=== PATIENT | female | born 1995 | race American Indian/Alaskan Native ===

== ENCOUNTER 2021-01-14 19:57 | Emergency (ER) | payer SELFPAY ==
[2021-01-14 22:36] VITALS: BP 110/67
[2021-01-14 23:56] LABS: Hematocrit 36.6 % (30.3-42.9); Hemoglobin 12.7 gm/dl (10.1-14.3); Mean Corpuscular HGB Conc 35 % (30-34); Mean Corpuscular Volume 92 fl (79-97); Platelet Count 116 K/mm3 (140-440); Red Blood Count 3.96 M/mm3 (3.65-5.03); Red Cell Distribution Width 12.6 % (13.2-15.2)
[2021-01-15] MEDS ORDERED: SODIUM CHLORIDE 0.9% 1000 ML 1,000 ML IV ONE (00:02)
[2021-01-15] MEDS ORDERED: ONDANSETRON 4 MG/2 ML INJ IV ONE (00:02)
[2021-01-15] MEDS ORDERED: DICYCLOMINE 20 MG/2 ML INJ IM ONE (00:04)
[2021-01-15 00:20] LABS: Albumin 4.1 g/dL (3.9-5); Blood Urea Nitrogen 7 mg/dL (7-17); Calcium 8.6 mg/dL (8.4-10.2); Hemolysis Index 5
[2021-01-15 00:47] LABS: Alanine Aminotransferase 3312 units/L (7-56); BUN/Creatinine Ratio 14
--- NOTE | 2021-01-15 00:57 | Emergency Department Report ---
ED Abdominal Pain HPI - General Chief Complaint: Nausea/Vomiting/Diarrhea Stated Complaint: WEAKNESS;DEHYDRATION;VOMITING Time Seen by Provider: 01/15/21 00:02 Source: patient Mode of arrival: Ambulatory Limitations: No Limitations - History of Present Illness Initial Comments: Patient 25-year-old -[place] female who presents for nausea vomiting diarrhea after eating leftover [employer] on yesterday. Patient denies fevers or chills, patient does endorse abdominal cramping and pain that is 14 bilateral lower abdominal, patient is voiding without difficulty. There is been no fever or chills. Last p.o. intake was yesterday. Last hydration was 2 hours ago. Patient denies dizziness or lightheadedness. Patient is alert and oriented x3 amatory with steady gait, states abdominal cramping is primary concern. MD Complaint: abdominal pain - Related Data Previous Rx's Medication Instructions Recorded Last Taken Type Dicyclomine [Bentyl] 10 mg PO QID PRN #15 capsule 01/15/21 Unknown Rx Ondansetron [Zofran Odt] 4 mg PO Q8HR #12 tab.rapdis 01/15/21 Unknown Rx Allergies Allergy/AdvReac Type Severity Reaction Status Date / Time No Known Allergies Allergy Unverified 01/14/21 22:35 ED Review of Systems ROS: Stated complaint: WEAKNESS;DEHYDRATION;VOMITING Other details as noted in HPI Constitutional: denies: chills, fever Eyes: denies: eye pain, eye discharge, vision change ENT: denies: ear pain, throat pain Respiratory: denies: cough, shortness of breath, wheezing Cardiovascular: denies: chest pain, palpitations Endocrine: no symptoms reported Gastrointestinal: abdominal pain, nausea, vomiting, diarrhea. denies: hematemesis, melena Genitourinary: denies: urgency, dysuria, discharge Musculoskeletal: denies: back pain, joint swelling, arthralgia Skin: denies: rash, lesions Neurological: denies: headache, weakness, paresthesias, vertigo Psychiatric: as per HPI Hematological/Lymphatic: denies: easy bleeding, easy bruising ED Past Medical Hx - Past Medical History Previous Medical History?: No - Surgical History Past Surgical History?: No - Medications Home Medications: Home Medications Medication Instructions Recorded Confirmed Last Taken Type Dicyclomine [Bentyl] 10 mg PO QID PRN #15 capsule 01/15/21 Unknown Rx Ondansetron [Zofran Odt] 4 mg PO Q8HR #12 tab.rapdis 01/15/21 Unknown Rx ED Physical Exam - General Limitations: No Limitations General appearance: alert, in no apparent distress - Head Head exam: Present: normocephalic - Eye Eye exam: Present: normal appearance, PERRL, EOMI. Absent: conjunctival inj ection Pupils: Present: normal accommodation - ENT ENT exam: Present: mucous membranes moist - Neck Neck exam: Present: normal inspection, full ROM. Absent: tenderness, meningismus, lymphadenopathy, thyromegaly - Respiratory Respiratory exam: Present: normal lung sounds bilaterally. Absent: respiratory distress, wheezes, stridor, chest wall tenderness - Cardiovascular Cardiovascular Exam: Present: regular rate, normal rhythm, normal heart sounds. Absent: systolic murmur, diastolic murmur, rubs, gallop - GI/Abdominal GI/Abdominal exam: Present: soft, distended, tenderness, normal bowel sounds. Absent: guarding, rebound, rigid, bruit, hernia - Rectal Rectal exam: Present: deferred - External exam: Present: normal external exam - Extremities Exam Extremities exam: Present: normal inspection, full ROM, normal capillary refill. Absent: tenderness - Back Exam Back exam: Present: normal inspection, full ROM, vertebral tenderness. Absent: tenderness, CVA tenderness (R), CVA tenderness (L) - Neurological Exam Neurological exam: Present: alert, oriented X3, CN II-XII intact, normal gait, reflexes normal. Absent: motor sensory deficit - Expanded Neurological Exam Expanded Patient oriented to: Present: person, place, time Speech: Present: fluid speech Cerebellar function: Finger to Nose: Normal, Heel to Chávez: Normal, Romberg: Normal Motor strength exam: RUE: 5, LUE: 5, RLE: 5, LLE: 5 Best Eye Response ([place]): (4) open spontaneously Best Motor Response ([place]): (6) obeys commands Best Verbal Response ([place]): (5) oriented Alexey Total: 15 - Psychiatric Psychiatric exam: Present: normal affect, normal mood - Skin Skin exam: Present: warm, dry, intact, normal color. Absent: rash ED Course Vital Signs 01/14/21 22:28 Temperature 98.4 F Pulse Rate 105 H Respiratory 17 Rate Blood Pressure 110/67 O2 Sat by Pulse 100 Oximetry ED Medical Decision Making - Lab Data Result diagrams: 01/14/21 23:28 01/14/21 23:28 - Radiology Data Radiology results: report reviewed, image reviewed FINDINGS: LOWER CHEST: No significant abnormality. LIVER: . Portable edema. No focal liver lesion. GALLBLADDER: No significant abnormality. BILE DUCTS: No significant abnormality. PANCREAS: No significant abnormality. SPLEEN: No significant abnormality. ADRENALS: No significant abnormality. RIGHT KIDNEY / URETER: No significant abnormality. LEFT KIDNEY / URETER: No significant abnormality. STOMACH / SMALL BOWEL: No significant abnormality. COLON: No significant abnormality. APPENDIX: No significant abnormality. PERITONEUM: Mild free fluid right pelvis. No free air. No fluid collection. LYMPH NODES: No significant adenopathy. VASCULAR STRUCTURES: No significant abnormality. URINARY BLADDER: No significant abnormality. REPRODUCTIVE ORGANS: No significant abnormality. ADDITIONAL FINDINGS: None. SKELETAL SYSTEM: No significant abnormality. IMPRESSION: 1. Portable edema is nonspecific. This can be seen in the setting of fluid resuscitation. 2. Mild pelvic free fluid. Signer Name: Arnaldo Tse MD Signed: 01/15/2021 3:18 AM Workstation Name: [id number] Transcribed By: ES Dictated By: Arnaldo Tse MD Electronically Authenticated By: Arnaldo Tse MD Signed Date/Time: 01/15/21317 DD/ 2 TD/TT: - Medical Decision Making CT abdomen and pelvis with contrast demonstrates mild free fluid in pelvis. No orbital abnormality. Liver enzymes noted AST ALT, WBCs at 1.8. Patient denies history plan Zofran as needed nausea, hydrate as directed, follow-up with primary care in 2 to 3 days. Stop substance. Return to the emergency department should symptoms worsen. Or unable to tolerate p.o. Patient is tolerating p.o. at this time without symptoms. Critical care attestation.: If time is entered above; I have spent that time in minutes in the direct care of this critically ill patient, excluding procedure time. ED Disposition Clinical Impression: Abdominal pain Qualifiers: Abdominal location: lower abdomen, unspecified Qualified Code(s): R10.30 - Lower abdominal pain, unspecified Nausea and vomiting Qualifiers: Vomiting type: unspecified Vomiting Intractability: non-intractable Qualified Code(s): R11.2 - Nausea with vomiting, unspecified Disposition: DC-01 TO HOME OR SELFCARE Is pt being admited?: No Does the pt Need Aspirin: No Condition: Stable Instructions: Nausea and Vomiting, Adult, Abdominal Pain, Adult, [id number], Food Poisoning, [id number] Additional Instructions: take medications as prescribed, hydrate as directed, return to emergency if symptoms worsen. Prescriptions: Dicyclomine [Bentyl] 10 mg PO QID PRN #15 capsule PRN Reason: abdominal spasm Ondansetron [Zofran Odt] 4 mg PO Q8HR #12 tab.rapdis Referrals: PRIMARY CARE, [Primary Care Provider] - 3-5 Days Forms: Work/School Release Form(ED) Time of Disposition: 03:46
[2021-01-15 01:07] LABS: Bilirubin,Urine NEG (Negative); Blood,Urine SM (Negative); Color,Urine Amber (Yellow); Mucus,Urine 1+ /HPF
[2021-01-15 02:30] LABS: Band Neutrophils # (Manual) 0.5 K/mm3; Platelet Estimate Consistent w Auto; RBC Morphology Normal; Total Cells Counted 100
[2021-01-15] MEDS ORDERED: METOCLOPRAMIDE 10 MG/2 ML INJ IV ONE (02:37)
[2021-01-15] MEDS ORDERED: diphenhydrAMINE 50 MG/ML VIAL IV ONE (02:37)
--- NOTE | 2021-01-15 03:23 | Cat Scan Report ---
CT ABDOMEN AND PELVIS WITH CONTRAST INDICATION / CLINICAL INFORMATION: Lower abd pain with N/V/D x 1 day.. TECHNIQUE: Axial CT images were obtained through the abdomen and pelvis after Omnipaque 300, 100 cc I V contrast. All CT scans at this location are performed using CT dose reduction for ALARA by means o f automated exposure control. COMPARISON: None available. FINDINGS: LOWER CHEST: No significant abnormality. LIVER: . Portable edema. No focal liver lesion. GALLBLADDER: No significant abnormality. BILE DUCTS: No significant abnormality. PANCREAS: No significant abnormality. SPLEEN: No significant abnormality. ADRENALS: No significant abnormality. RIGHT KIDNEY / URETER: No significant abnormality. LEFT KIDNEY / URETER: No significant abnormality. STOMACH / SMALL BOWEL: No significant abnormality. COLON: No significant abnormality. APPENDIX: No significant abnormality. PERITONEUM: Mild free fluid right pelvis. No free air. No fluid collection. LYMPH NODES: No significant adenopathy. VASCULAR STRUCTURES: No significant abnormality. URINARY BLADDER: No significant abnormality. REPRODUCTIVE ORGANS: No significant abnormality. ADDITIONAL FINDINGS: None. SKELETAL SYSTEM: No significant abnormality. IMPRESSION: 1. Portable edema is nonspecific. This can be seen in the setting of fluid resuscitation. 2. Mild pelvic free fluid. Signer Name: Arnaldo Tse MD Signed: 01/15/2021 3:18 AM Workstation Name: [id number]
== END 2021-01-15 05:00 | disposition home or self-care (01) ==
LOC: ED 19:57
DX: R11.2 Nausea with vomiting, unspecified (principal); R10.31 Right lower quadrant pain; R10.32 Left lower quadrant pain; Z79.899 Other long term (current) drug therapy
CPT/HCPCS: 36415; 74177; 80053; 81001; 83690; 84703; 85007; 85025; 96361; 96372; 96374; 96375; 99284; J0500; J1200; J2405; J2765; J7030; Q9967